=== PATIENT | female | born 1950 | race African-American/Black ===

== ENCOUNTER → 2017-06-21 | Outpatient (CLI) | payer BC ==
[2017-06-21 10:07] LABS: EOSINOPHILS % 1.6 % (0.0-5.0); HEMATOCRIT. 43.3 % (36.0-48.0); HEMOGLOBIN. 14.4 g/dL (12.0-16.0); LYMPHOCYTES % 32.5 % (20.0-50.0); MEAN CORPUSCULAR HEMOGLOBIN 25.1 pg (28.0-32.0); MEAN CORPUSCULAR VOLUME 75.7 fL (81.0-99.0); MEAN PLATELET VOLUME 8.7 fl (7.4-10.4); MONOCYTES % 6.3 % (2.0-8.0); NEUTROPHILS % 58.6 % (40.0-76.0); PLATELET 168 x1000/uL (130-400); RED BLOOD CELL COUNT 5.72 mill/uL (4.2-5.4); RED CELL DISTRIBUTION WIDTH 14.8 % (11.6-14.6)
[2017-06-21 11:02] LABS: AMYLASE 83 IU/L (25-115); CARBON DIOXIDE 29 mEq/L (21-32); CHLORIDE 104 mEq/L (98-107); GAMMA GLUTAMYL TRANSPEPTIDASE 21 IU/L (7-32); HDL CHOLESTEROL 73 mg/dL (40-59); LDL CHOLESTEROL 93 mg/dL (5-100); T4 FREE 0.95 ng/dL (0.76-1.46)
[2017-06-22 09:09] LABS: VITAMIN D 25-OH 45.1 ng/mL (30.0-100.0)
[2017-06-22 13:11] LABS: *CREATININE RANDOM URINE 136.2 mg/dL (Not Estab.); HBSAG SCREEN Negative (Negative); HEPATITIS A ANTIBODY TOTAL Positive (Negative); MICROALBUMIN RANDOM URINE <3.0 ug/mL (Not Estab.); MICROALBUMIN/CREATININE RATIO <2.2 mg/g creat (0.0-30.0)
[2017-06-22 14:20] LABS: ANTI-NUCLEAR ANTIBODIES DIRECT Positive (Negative)
== END | disposition home or self-care (01) ==
LOC: LAB 09:35
PROVIDERS: ATTEND Internal Medicine Gastroenterology
DX: I10 Essential (primary) hypertension (principal); R53.83 Other fatigue; R63.4 Abnormal weight loss; R14.0 Abdominal distension (gaseous)
CPT/HCPCS: 36415; 80053; 80061; 82043; 82150; 82306; 82570; 82784; 82977; 83036; 83516; 83615; 83690; 83735; 84439; 84443; 85025; 85651; 86038; 86255; 86706; 86708; 87340

== ENCOUNTER → 2017-08-25 | Outpatient (CLI) | payer BC | END | disposition home or self-care (01) | LOC: US 08:23 | PROVIDERS: ATTEND Internal Medicine Gastroenterology | DX: R10.9 Unspecified abdominal pain (principal); R07.9 Chest pain, unspecified; R16.0 Hepatomegaly, not elsewhere classified | CPT/HCPCS: 76700 ==

== ENCOUNTER → 2017-09-12 | Outpatient (CLI) | payer BC ==
[2017-09-12 11:11] LABS: TOTAL IRON BINDING CAPACITY 331 ug/dL (250-450)
[2017-09-12 13:20] LABS: FOLIC ACID (FOLATE) SERUM > 20.00 ng/mL (>5.38); VITAMIN B12 SERUM > 2000.0 pg/mL (211-911)
[2017-09-12 13:56] LABS: FERRITIN 91 ng/mL (10-291)
[2017-09-13 13:09] LABS: TRANSFERRIN 248 mg/dL (200-370)
[2017-09-14 13:12] LABS: ACTIN (SMOOTH MUSCLE) ANTIBODY 16 Units (0-19); HGB SOLUBILITY Negative (Negative)
[2017-09-15 09:06] LABS: COPPER PLASMA 145 ug/dL (72-166)
[2017-09-15 13:12] LABS: ANTI-NUCLEAR ANTIBODIES DIRECT Positive (Negative)
== END | disposition home or self-care (01) ==
LOC: LAB 09:46
PROVIDERS: ATTEND Internal Medicine Gastroenterology
DX: A04.9 Bacterial intestinal infection, unspecified (principal); D55.1 Anemia due to other disorders of glutathione metabolism
CPT/HCPCS: 36415; 81256; 82390; 82525; 82607; 82728; 82746; 83021; 83540; 83550; 84466; 85044; 85660; 86038; 86803

== ENCOUNTER → 2017-12-28 | Day surgery (SDC) | payer BC | END | disposition home or self-care (01) | LOC: CARD 09:40 | PROVIDERS: ATTEND Specialist | DX: I34.0 Nonrheumatic mitral (valve) insufficiency (principal); I10 Essential (primary) hypertension; R00.2 Palpitations | CPT/HCPCS: 93225; 93226; 93306 ==

== ENCOUNTER → 2018-04-04 | Outpatient (CLI) | payer BC ==
[2018-04-04 10:09] LABS: EOSINOPHILS % 1.5 % (0.0-5.0); HEMATOCRIT. 42.8 % (36.0-48.0); LYMPHOCYTES % 32.2 % (20.0-50.0); MEAN CORPUSCULAR HEMOGLOBIN 25.3 pg (28.0-32.0); MEAN CORPUSCULAR VOLUME 77.3 fL (81.0-99.0); MEAN PLATELET VOLUME 8.7 fl (7.4-10.4); MONOCYTES % 8.8 % (2.0-8.0); NEUTROPHILS % 56.5 % (40.0-76.0); PLATELET 198 x1000/uL (130-400); RED BLOOD CELL COUNT 5.54 mill/uL (4.2-5.4); RED CELL DISTRIBUTION WIDTH 14.6 % (11.6-14.6)
== END | disposition home or self-care (01) ==
LOC: LAB 09:22
DX: I10 Essential (primary) hypertension (principal); K57.30 Diverticulosis of large intestine without perforation or abscess without bleeding
CPT/HCPCS: 36415; 85025; 86038

== ENCOUNTER → 2018-04-09 | Outpatient (CLI) | payer BC ==
[~2018-04-09] MED LIST: REGADENOSON 0.4 MG/5 ML IV ONE
== END | disposition home or self-care (01) ==
LOC: NM 07:27
PROVIDERS: ATTEND Specialist
DX: R07.89 Other chest pain (principal); R06.02 Shortness of breath
CPT/HCPCS: 78452; 93017; A9500; J2785

== ENCOUNTER → 2019-01-29 | Outpatient (CLI) | payer BC ==
[2019-01-29 09:07] LABS: BASOPHILS % 1.1 % (0.0-2.0); EOSINOPHILS % 1.5 % (0.0-5.0); HEMATOCRIT. 43.6 % (36.0-48.0); HEMOGLOBIN. 14.3 g/dL (12.0-16.0); LYMPHOCYTES % 29.9 % (20.0-50.0); MEAN CORPUSCULAR HEMOGLOBIN 25.2 pg (28.0-32.0); MEAN CORPUSCULAR VOLUME 77.1 fL (81.0-99.0); MEAN PLATELET VOLUME 8.8 fl (7.4-10.4); MONOCYTES % 6.7 % (2.0-8.0); NEUTROPHILS % 60.8 % (40.0-76.0); PLATELET 197 x1000/uL (130-400); RED BLOOD CELL COUNT 5.66 mill/uL (4.2-5.4); RED CELL DISTRIBUTION WIDTH 14.6 % (11.6-14.6)
[2019-01-29 09:16] LABS: CHLORIDE 108 mEq/L (98-107)
[2019-01-29 09:25] LABS: LDL CHOLESTEROL 127 mg/dL (5-100)
[2019-01-29 09:26] LABS: T4 FREE 0.88 ng/dL (0.76-1.46)
[2019-01-29 09:27] LABS: HDL CHOLESTEROL 71 mg/dL (40-59)
[2019-01-29 11:31] LABS: FOLIC ACID (FOLATE) SERUM >20 ng/mL ng/mL (>5.38)
[2019-01-29 11:48] LABS: VITAMIN B12 SERUM > 2000.0 pg/mL (211-911)
== END | disposition home or self-care (01) ==
LOC: LAB 08:26
PROVIDERS: ATTEND Nurse Practitioner Family
DX: I10 Essential (primary) hypertension (principal); R16.0 Hepatomegaly, not elsewhere classified; F41.9 Anxiety disorder, unspecified
CPT/HCPCS: 36415; 80061; 82306; 82607; 82746; 83036; 83880; 84439; 84443; 84481

== ENCOUNTER → 2020-03-19 | Outpatient (CLI) | payer BC ==
[2020-03-19 10:31] LABS: EOSINOPHILS % 2.2 % (0.0-5.0); HEMATOCRIT. 43.5 % (36.0-48.0); HEMOGLOBIN. 14.4 g/dL (12.0-16.0); LYMPHOCYTES % 32.8 % (20.0-50.0); MEAN CORPUSCULAR HEMOGLOBIN 25.5 pg (28.0-32.0); MEAN CORPUSCULAR VOLUME 77.1 fL (81.0-99.0); MEAN PLATELET VOLUME 8.9 fl (7.4-10.4); MONOCYTES % 7.7 % (2.0-8.0); NEUTROPHILS % 56.3 % (40.0-76.0); PLATELET 172 x1000/uL (130-400); RED BLOOD CELL COUNT 5.64 mill/uL (4.2-5.4)
[2020-03-19 10:38] LABS: CHLORIDE 107 mEq/L (98-107)
[2020-03-19 10:43] LABS: AMYLASE 114 IU/L (25-115)
[2020-03-19 10:45] LABS: LDL CHOLESTEROL 143 mg/dL (5-100)
[2020-03-19 10:47] LABS: HDL CHOLESTEROL 79 mg/dL (40-59); T4 FREE 0.83 ng/dL (0.76-1.46)
== END | disposition home or self-care (01) ==
LOC: LAB 09:42
PROVIDERS: ATTEND Internal Medicine Gastroenterology
DX: R11.2 Nausea with vomiting, unspecified (principal); R10.9 Unspecified abdominal pain
CPT/HCPCS: 36415; 80053; 80061; 82150; 83036; 84439; 84443; 85025

== ENCOUNTER → 2020-04-15 | Outpatient (CLI) | payer BC ==
[~2020-04-15] MED LIST changes: +BARIUM SULFATE 450ML ORAL SUSP ONE; +IOHEXOL-300 100 ML BOTTLE ONE; -REGADENOSON 0.4 MG/5 ML IV ONE
== END | disposition home or self-care (01) ==
LOC: US 07:36
PROVIDERS: ATTEND Internal Medicine Gastroenterology
DX: N28.1 Cyst of kidney, acquired (principal); R16.0 Hepatomegaly, not elsewhere classified
CPT/HCPCS: 74177; 76700; Q9967

== ENCOUNTER → 2020-09-09 | Outpatient (CLI) | payer BC | END | disposition home or self-care (01) | LOC: LAB 11:04 | PROVIDERS: ATTEND Internal Medicine Gastroenterology | DX: Z20.828 Contact with and (suspected) exposure to other viral communicable diseases (principal) | CPT/HCPCS: C9803; U0003 ==

== ENCOUNTER → 2020-09-11 | Outpatient (CLI) | payer BC | END | disposition home or self-care (01) | LOC: US 09:02 | PROVIDERS: ATTEND Internal Medicine Gastroenterology | DX: D25.9 Leiomyoma of uterus, unspecified (principal); R16.0 Hepatomegaly, not elsewhere classified | CPT/HCPCS: 76856 ==

== ENCOUNTER → 2020-10-01 | Outpatient (CLI) | payer BC ==
[2020-10-01 11:18] LABS: AMYLASE 73 IU/L (25-115)
[2020-10-02 15:10] LABS: ANTI-NUCLEAR ANTIBODIES DIRECT Positive (Negative)
[2020-10-05 09:06] LABS: ACTIN (SMOOTH MUSCLE) ANTIBODY 8 Units (0-19)
== END | disposition home or self-care (01) ==
LOC: LAB 10:21
PROVIDERS: ATTEND Internal Medicine Gastroenterology
DX: R11.2 Nausea with vomiting, unspecified (principal); R10.9 Unspecified abdominal pain
CPT/HCPCS: 36415; 82150; 86038

== ENCOUNTER → 2021-11-26 | Outpatient (CLI) | payer BC | END | disposition home or self-care (01) | LOC: RAD 11:25 | PROVIDERS: ATTEND Internal Medicine | DX: M47.812 Spondylosis without myelopathy or radiculopathy, cervical region (principal); M40.40 Postural lordosis, site unspecified; M25.78 Osteophyte, vertebrae | CPT/HCPCS: 72040; 73030 ==